=== PATIENT | male | born 1975 | race Caucasian/White ===

== ENCOUNTER 2020-01-27 13:55 | Emergency (ER) | payer OTHER ==
[~2020-01-27] VITALS: Ht 180.3 cm; Wt 166.5 kg
[2020-01-27] MEDS ORDERED: TIROSINT50 MCG (14:08)
[2020-01-27] MEDS ORDERED: COZAAR100 MG PO (14:08)
[2020-01-27] MEDS ORDERED: LEVO-T75 MCG PO (14:24)
[2020-01-27] MEDS ORDERED: VISTARIL50 MG PO (14:24)
[2020-01-27] MEDS ORDERED: LOSARTAN POTASS50 MG PO (14:25)
[2020-01-27] MEDS ORDERED: PAROXETINE HCL20 MG PO (14:26)
[2020-01-27] MEDS ORDERED: MIRTAZAPINE15 M1 PO (14:26)
[2020-01-27] MEDS ORDERED: FLOMAX0.4 MG PO (14:26)
[2020-01-27] MEDS ORDERED: PROPRANOLOL HCL20 MG PO (14:26)
--- NOTE | 2020-01-27 20:25 | EKG ---
[facility] [address] [facility] [place] [address] Signed Normal sinus rhythm Left posterior fascicular block Abnormal ECG No previous ECGs available Confirmed by JONO THOMAS MD ([id number] on 01/27/2020 8:25:10 PM Electronically Signed By: JONO THOMAS MD 01/27/202024 PATIENT NAME: ROBIN LEVIN Electrocardiogram DATE OF : 77 PHYSICIAN: JONO THOMAS MD REPORT #: [id number] REPORT IS CONFIDENTIAL AND NOT TO BE RELEASED WITHOUT AUTHORIZATION
== END 2020-01-27 15:28 | disposition home or self-care (01) ==
LOC: ED 13:55
DX: I48.0 Paroxysmal atrial fibrillation (principal); Z79.899 Other long term (current) drug therapy
CPT/HCPCS: 71045; 80053; 83735; 84484; 85025; 93005; 93010; 99285-25

== ENCOUNTER 2020-05-29 15:10 | Emergency (ER) | payer OTHER ==
[~2020-05-29] VITALS: Ht 180.3 cm; Wt 166.5 kg
[~2020-05-29 15:10] MED LIST: COZAAR100 MG PO; FLOMAX0.4 MG PO; LEVO-T75 MCG PO; LOSARTAN POTASS50 MG PO; MIRTAZAPINE15 M1 PO; PAROXETINE HCL20 MG PO; PROPRANOLOL HCL20 MG PO; TIROSINT50 MCG; VISTARIL50 MG PO
--- NOTE | 2020-05-30 00:43 | EKG ---
[facility] [address] [facility] [place] [address] Signed Normal sinus rhythm Normal ECG When compared with ECG of 27-JAN-2020 13:59, Left posterior fascicular block is no longer present Confirmed by EMILY VALLEJO MD ([id number] on 05/30/2020 12:43:14 AM Electronically Signed By: EMILY VALLEJO MD 05/30/20 0043 PATIENT NAME: OLLIEROBIN ERICA Electrocardiogram DATE OF : 77 PHYSICIAN: EMILY VALLEJO MD REPORT #: [id number] REPORT IS CONFIDENTIAL AND NOT TO BE RELEASED WITHOUT AUTHORIZATION
== END 2020-05-29 18:00 | disposition home or self-care (01) ==
LOC: ED 15:10
DX: R00.2 Palpitations (principal); I10 Essential (primary) hypertension; F32.9 Major depressive disorder, single episode, unspecified; Z88.8 Allergy status to other drugs, medicaments and biological substances; Z79.899 Other long term (current) drug therapy
CPT/HCPCS: 80053; 83735; 84484; 85025; 93005; 93010; 99285-25